=== PATIENT | female | born 1975 | race Two or more races ===

== ENCOUNTER 2020-11-11 20:45 | Emergency (ER) | payer MEDICARE, OTHER ==
[~2020-11-11] VITALS: Ht 177.8 cm; Wt 97.5 kg
[2020-11-11] MEDS ORDERED: HALO5 PO (22:33)
[2020-11-11] MEDS ORDERED: CLOZ100 PO (22:35)
[2020-11-11] MEDS ORDERED: BENZ1 PO (22:35)
[2020-11-11] MEDS ORDERED: TRAZ100 PO (22:36)
[2020-11-11] MEDS ORDERED: Ativan1 MG PO (22:36)
== END 2020-11-11 23:47 | disposition home or self-care (01) ==
LOC: ER 20:45
DX: M79.605 Pain in left leg (principal); Z79.899 Other long term (current) drug therapy
CPT/HCPCS: 93971; 99283-25

== ENCOUNTER → 2021-07-16 | Outpatient (CLI) | payer OTHER ==
[~2021-07-16] MED LIST: Ativan1 MG PO; BENZ1 PO; CLOZ100 PO; HALO5 PO; TRAZ100 PO
[2021-07-18 05:10] LABS: BASOS 0 % (Not Estab.); EOS 0 % (Not Estab.); HEMATOCRIT 40.2 % (34.0-46.6); HEMOGLOBIN 12.7 g/dL (11.1-15.9); IMMATURE GRANULOCYTES 0 % (Not Estab.); LYMPHS 19 % (Not Estab.); MCH 27.8 pg (26.6-33.0); MCHC 31.6 g/dL (31.5-35.7); MCV 88 fL (79-97); MONOCYTES 8 % (Not Estab.); MONOCYTES(ABSOLUTE) 0.8 x10E3/uL (0.1-0.9); NEUTROPHILS 73 % (Not Estab.); NEUTROPHILS (ABSOLUTE) 7.8 x10E3/uL (1.4-7.0); PLATELETS 348 x10E3/uL (150-450); RBC 4.57 x10E6/uL (3.77-5.28); RDW 13.6 % (11.7-15.4); WBC 10.7 x10E3/uL (3.4-10.8)
[2021-07-18 07:11] LABS: A/G RATIO 1.6 (1.2-2.2); BILIRUBIN, TOTAL 0.3 mg/dL (0.0-1.2); CALCIUM, SERUM 9.2 mg/dL (8.7-10.2); CREATININE, SERUM 0.93 mg/dL (0.57-1.00); ESTIM. AVG GLU (EAG) 174 mg/dL (.); GLOBULIN, TOTAL 3.1 g/dL (1.5-4.5); HEMOGLOBIN A1C 7.7 % (4.8-5.6); POTASSIUM, SERUM 3.6 mmol/L (3.5-5.2); PROTEIN, TOTAL, SERUM 8.1 g/dL (6.0-8.5)
== END | disposition home or self-care (01) ==
LOC: LAB SHORT 19:08
PROVIDERS: Family Medicine
DX: R42 Dizziness and giddiness (principal); R73.9 Hyperglycemia, unspecified
CPT/HCPCS: 80053; 83036; 85025

== ENCOUNTER → 2021-09-12 | Outpatient (CLI) | payer OTHER | LOC: LAB SHORT 14:55 | DX: E11.9 Type 2 diabetes mellitus without complications (principal) | CPT/HCPCS: 83036 ==

== ENCOUNTER → 2025-02-17 | Outpatient (CLI) | payer MEDICARE, OTHER ==
[2025-02-17 15:18] LABS: BASOPHILS ABSOLUTE AUTO 0.03 K/mm3 (0.00-0.23); BASOPHILS PERCENT AUTO 1 % (0-2); EOSINOPHILS ABSOLUTE AUTO 0.00 K/mm3 (0.00-0.68); EOSINOPHILS PERCENT AUTO 0 % (0-6); Hematocrit 39.3 % (33.0-51.0); Hemoglobin 12.7 g/dL (11.5-16.0); IMMATURE GRAN ABSOLUTE AUTO 0.01 K/mm3 (0.00-0.10); IMMATURE GRAN PERCENT AUTO 0 % (0-1); LYMPHOCYTES ABSOLUTE AUTO 1.64 K/mm3 (0.84-5.20); LYMPHOCYTES PERCENT AUTO 29 % (21-46); MONOCYTES ABSOLUTE AUTO 0.65 K/mm3 (0.16-1.47); MONOCYTES PERCENT AUTO 11 % (4-13); Mean Corpuscular HGB Conc 32.3 g/dL (31.5-36.5); Mean Corpuscular Volume 89 fL (80-100); NEUTROPHILS ABSOLUTE AUTO 3.42 K/mm3 (1.96-9.15); NEUTROPHILS PERCENT AUTO 60 % (41-73); NRBC ABSOLUTE 0.00 K/mm3 (0.00-0.02); NRBC Auto 0.0 /100 WBC (0.0-0.2); Platelet Count 320 K/mm3 (150-400); RDW Coefficient Variation 14.1 % (11.7-14.2); RDW Standard Deviation 45.5 fL (35.1-46.3)
[2025-02-17 15:26] LABS: Alanine Aminotransfer (ALT/SGP 17.0 U/L (12-78); Albumin, Blood 3.8 g/dL (3.4-5.0); Albumin/Globulin Ratio 1.0 (0.8-1.8); Anion Gap 11.0 mmol/L (6-16); Aspartate Aminotrans (AST/SGOT 12.0 U/L (12-37); Bilirubin, Total 0.4 mg/dL (0.1-1.0); Blood Urea Nitrogen 9.0 mg/dL (8-24); CO2, Blood 28.0 mmol/L (21-32); Calcium, Blood 9.0 mg/dL (8.5-10.1); Chloride, Blood 102.0 mmol/L (98-108); Creatinine, Blood 1.02 mg/dL (0.40-1.00); Globulin, Blood 3.8 g/dL (2.2-4.0); Glucose, Blood 133.0 mg/dL (70-99); Potassium, Blood 3.9 mmol/L (3.5-5.5); Sodium, Blood 137.0 mmol/L (136-145); Total Protein, Blood 7.6 g/dL (6.4-8.2)
== END | disposition home or self-care (01) ==
LOC: LAB SHORT 15:13 → LAB 15:13
PROVIDERS: Family Medicine
DX: R00.0 Tachycardia, unspecified (principal)
CPT/HCPCS: 80053; 85025